=== PATIENT | male | born 1990 | race Caucasian/White ===

== ENCOUNTER → 2021-08-28 08:31 | Outpatient (BNVA) | payer OTHER, SELFPAY | PROVIDERS: Family Provider Family Medicine; PCP Family Medicine; Referring Provider Family Medicine; Visit Provider Urology | DX: R86.8 Other abnormal findings in specimens from male genital organs (principal) | CPT/HCPCS: 80503; 83001; 83002; 84403; 89320; 99203 ==

== ENCOUNTER 2021-12-13 09:23 | Outpatient (CLI) | payer OTHER, SELFPAY ==
[2021-12-13 10:15] LABS: Testosterone Total - Urology 744 ng/mL (300-1000)
[2021-12-13 10:26] LABS: Viscosity Semen Droplets
[2021-12-13 10:56] LABS: Sperm Immotility 10 % (50-60); Sperm Non-Progressive Motility 20 % (5-10); Sperm Progressive Motility 70 % (31-34)
[2021-12-13 11:01] LABS: Side 1 16; Side 2 14
[2021-12-13 11:05] LABS: Red Blood Count Semen 0-4 /hpf; White Blood Count Semen 0-4 /hpf
== END 2021-12-13 09:24 | disposition home or self-care (01) ==
LOC: LAB 09:30
PROVIDERS: PCP Family Medicine; Visit Provider Urology
DX: N46.11 Organic oligospermia (principal)
CPT/HCPCS: 36415; 80503; 84403; 89320

== ENCOUNTER → 2021-12-20 15:24 | Outpatient (BNVA) | payer OTHER, SELFPAY | PROVIDERS: PCP Family Medicine; Visit Provider Urology | DX: N46.11 Organic oligospermia (principal) | CPT/HCPCS: 99212 ==

== ENCOUNTER 2022-03-21 08:13 | Outpatient (CLI) | payer OTHER, SELFPAY ==
[2022-03-21 08:52] LABS: Volume Semen 2.5 mL (2-5)
[2022-03-21 09:01] LABS: Viscosity Semen High Viscosity
[2022-03-21 09:02] LABS: Sperm Immotility 50 % (50-60)
[2022-03-21 09:04] LABS: Sperm Non-Progressive Motility 10 % (5-10); Sperm Progressive Motility 40 % (31-34)
[2022-03-21 09:06] LABS: White Blood Count Semen 0-4 /hpf
[2022-03-21 09:07] LABS: Epithelial Count Semen Rare /hpf
== END 2022-03-21 08:14 | disposition home or self-care (01) ==
PROVIDERS: PCP Family Medicine; Visit Provider Urology
DX: N46.11 Organic oligospermia (principal)
CPT/HCPCS: 80503; 89320

== ENCOUNTER → 2022-03-28 16:13 | Outpatient (BNVA) | payer OTHER, SELFPAY | PROVIDERS: PCP Family Medicine; Visit Provider Urology | DX: N46.11 Organic oligospermia (principal) | CPT/HCPCS: 99213 ==

== ENCOUNTER → 2024-09-22 08:32 | Outpatient (BNVA) | payer OTHER, SELFPAY | PROVIDERS: PCP Family Medicine; Visit Provider Nurse Practitioner Family | DX: L72.11 Pilar cyst (principal); L81.4 Other melanin hyperpigmentation; L57.8 Other skin changes due to chronic exposure to nonionizing radiation; X32.XXXA Exposure to sunlight, initial encounter | CPT/HCPCS: 99203 ==

== ENCOUNTER → 2024-10-14 09:29 | Outpatient (BNVA) | payer OTHER, SELFPAY | PROVIDERS: PCP Family Medicine; Visit Provider Dermatology | DX: L21.8 Other seborrheic dermatitis (principal); D48.5 Neoplasm of uncertain behavior of skin; R20.8 Other disturbances of skin sensation; R23.8 Other skin changes; L53.8 Other specified erythematous conditions | CPT/HCPCS: 11423; 12032; 99213 ==